=== PATIENT | female | born 1985 ===

== ENCOUNTER → 2017-01-23 | Outpatient (REF) | payer BC ==
[2017-01-23 14:59] LABS: MEAN CORPUSCULAR HGB CONC 33.8 g/dl (32.0-36.5); PLATELET COUNT, AUTOMATED 325 10^3/uL (150-450); RED CELL DISTRIBUTION WIDTH 12.3 % (11.5-14.5); WHITE BLOOD COUNT 6.4 10^3/uL (4.0-10.0)
[2017-01-23 22:10] LABS: HCG, SERUM QUANTITATIVE 136636 MIU/ML
[2017-01-24 11:34] LABS: HBsAg Prenatal NEGATIVE (NEGATIVE)
== END ==
LOC: M LAB REF 13:24
PROVIDERS: ATTEND Obstetrics & Gynecology
DX: Z32.01 Encounter for pregnancy test, result positive (principal)